=== PATIENT | male | born 1945 | race Caucasian/White ===

== ENCOUNTER 2020-06-19 10:52 | Emergency (ER) | payer MEDICARE, BC ==
[~2020-06-19] VITALS: Ht 180.3 cm; Wt 84.1 kg
[~2020-06-19 10:52] MED LIST: BP MED PO; FLOMAX 0.40.4 MG/CAP PO; HCTZ 25MG TAB25 MG PO; NORCO 325 MG-51 TAB PO; PYRIDIUM 100MG100 MG PO; TOPROL XL 50MG50 MG PO; ULTRAM 50MG TAB50 MG PO
[2020-06-19 10:58] VITALS: TEMP 98.6
[2020-06-19] MEDS ORDERED: ASPIRIN 32325 MG/TAB PO (11:07)
[2020-06-19] MEDS ORDERED: PRAVACHOL 40MG40 MG PO (11:58)
[2020-06-19 11:59] LABS: BASO # 0.1 (0.0-0.2); BASO % 1.1 % (0.0-2.0); EOS # 0.7 (0.0-0.7); EOS % 7.2 % (0-4.0); GRAN % 62.6 % (42.2-75.2); LYMPH # 1.6 (1.2-3.4); LYMPH % 16.5 % (20.0-51.0); MEAN CELL VOLUME 93 fl (80.0-100.0); MEAN CORPUSCULAR HEMOGLOBIN 32 pg (27.0-31.0); MEAN CORPUSCULAR HGB CONC 34 g/dl (33.0-37.0); MEAN PLATELET VOLUME 9.3 fl (7.4-10.4); MONO # 1.2 (0.1-0.6); MONO % 12.2 % (1.7-9.3); PLATELET COUNT 244 K/mm3 (130-400); RED BLOOD COUNT 3.79 M/mm3 (4.20-5.60); REDCELL DISTRIBUTION WIDTH-CV 13.6 % (11.5-14.5)
[2020-06-19 12:03] LABS: HEMATOCRIT 35.1 % (42.0-52.0)
[2020-06-19 12:09] LABS: ALANINE AMINOTRANSFERASE 35 U/L (4-49); ALBUMIN 3.6 gm/dL (3.5-5.0); ALKALINE PHOSPHATASE 153 U/L (50-136); ANION GAP 8 mmol/L (7-16); AST,SGOT 57 U/L (15-37); BILIRUBIN,TOTAL 2.7 mg/dL (0.0-1.0); BLOOD UREA NITROGEN 33 mg/dL (9-20); CALCIUM 8.6 mg/dL (8.4-10.2); CARBON DIOXIDE 26 mmol/L (22-30); CHLORIDE 101 mmol/L (98-107); CREATININE, serum 1.16 (0.66-1.25); GLUCOSE 106 mg/dL (74-106); POTASSIUM 3.5 mmol/L (3.4-5.0); SODIUM 135 mmol/L (137-145); TOTAL PROTEIN 6.6 gm/dL (6.4-8.2)
[2020-06-19 12:47] LABS: TROPONIN-I < 0.012 ng/mL (0.000-0.035)
[2020-06-19 14:45] VITALS: BP 138/79; PULSE 73
== END 2020-06-19 14:45 | disposition home or self-care (01) ==
LOC: COL.ER 10:52
PROVIDERS: Emergency Medicine
DX: R06.00 Dyspnea, unspecified (principal); Z96.653 Presence of artificial knee joint, bilateral; Z79.82 Long term (current) use of aspirin; Z88.1 Allergy status to other antibiotic agents; Z87.891 Personal history of nicotine dependence
CPT/HCPCS: J7030; Q9967

== ENCOUNTER 2021-01-26 19:44 | Emergency (ER) | payer MEDICARE, BC ==
[~2021-01-26] VITALS: Ht 25.4 cm; Wt 85.9 kg
[~2021-01-26 19:44] MED LIST changes: +ASPIRIN 32325 MG/TAB PO; +PRAVACHOL 40MG40 MG PO
[2021-01-26] MEDS ORDERED: INDOCIN 25MG CA25 MG PO (21:15)
[2021-01-26 22:07] VITALS: BP 131/76; PULSE 77; TEMP 98.9
== END 2021-01-26 21:45 | disposition home or self-care (01) ==
LOC: COL.ER 19:44
DX: M10.9 Gout, unspecified (principal); I10 Essential (primary) hypertension; E78.5 Hyperlipidemia, unspecified; Z79.899 Other long term (current) drug therapy
CPT/HCPCS: J1100

== ENCOUNTER → 2021-03-14 | Outpatient (CLI) | payer MEDICARE, BC ==
[~2021-03-14] MED LIST changes: +INDOCIN 25MG CA25 MG PO
== END ==
LOC: COL.VAS 11:27
DX: R22.41 Localized swelling, mass and lump, right lower limb (principal)

== ENCOUNTER → 2022-07-01 | Outpatient (CLI) | payer MEDICARE, BC | LOC: COL.RAD 08:03 | DX: Z12.2 Encounter for screening for malignant neoplasm of respiratory organs (principal) ==

== ENCOUNTER → 2023-01-28 | Outpatient (CLI) | payer MEDICARE | LOC: COL.RAD 07:08 | DX: N28.1 Cyst of kidney, acquired (principal) ==